=== PATIENT | male | born 1995 ===

== ENCOUNTER 2023-11-21 09:37 | Emergency (ER) | payer SELFPAY ==
[~2023-11-21] VITALS: Ht 160 cm; Wt 68.2 kg
[2023-11-21 09:42] VITALS: BP 122/91; PULSE 84; RESP 15; TEMP 98.1; O2SAT 98
== END 2023-11-21 10:09 | disposition left against medical advice (07) ==
LOC: ER 09:38
DX: R51.9 Headache, unspecified (principal)
CPT/HCPCS: 99281